=== PATIENT | female | born 2000 | race Hispanic/Latino ===

== ENCOUNTER 2022-07-27 08:43 | Outpatient (CLI) | payer BC ==
[2022-07-27 09:53] LABS: #Basophils 0.1 10x3/uL (0.0-0.2); #Eosinphils 0.1 10x3/uL (0.0-0.5); #Monocytes 0.3 10x3/uL (0.0-1.1); #Neutrophils 2.9 10x3/uL (1.5-8.4); %Basophils 1.5 % (0.0-2.0); %Eosinophils 1.3 % (0.0-6.0); %Lymphocytes 27.4 % (18.0-47.0); %Monocytes 6.9 % (0.0-10.0); %Neutrophils 62.7 % (40.0-75.0); Hemoglobin 12.6 g/dL (12.0-15.5); Mean Corpuscular HGB CONC 34.2 g/dL (32.0-36.0); Mean Corpuscular Hemoglobin 29.9 pg (27.0-33.0); Mean Corpuscular Volume 87.4 fl (81.6-98.3); Mean Platelet Volume 9.8 fl (7.4-10.4); Platelet Count 209 10x3/uL (150-450); RBC Distribution Width 11.9 % (11.5-14.5); Red Blood Cell (RBC) Count 4.21 10x6/uL (3.90-5.03); White Blood Cell (WBC) Count 4.7 10x3/uL (3.5-10.5)
[2022-07-27 10:10] LABS: ALT (SGPT) 27 U/L (8-55); AST (SGOT) 24 U/L (5-34); Albumin 4.5 g/dL (3.5-5.0); Alkaline Phosphatase 50 U/L (40-110); Anion Gap 16 mmol/L (10-20); BUN (Urea Nitrogen) 6 mg/dL (7.0-18.7); Bilirubin, Direct 0.3 mg/dL (0.1-0.3); Bilirubin, Total 0.9 mg/dL (0.2-1.2); Calc. Creatinine Clearance 0 mL/min (70-130); Calcium 9.3 mg/dL (7.8-10.44); Carbon Dioxide 21 mmol/L (22-29); Chloride 106 mmol/L (98-107); Estimated GFR 125; Glucose 89 mg/dL (70-105); Potassium 3.8 mmol/L (3.5-5.1); Protein, Total 7.4 g/dL (6.0-8.3); Sodium 139 mmol/L (136-145)
== END 2022-07-27 08:44 | disposition home or self-care (01) ==
LOC: LABBT 08:43
PROVIDERS: ATTEND Surgery
DX: Z01.812 Encounter for preprocedural laboratory examination (principal); K80.20 Calculus of gallbladder without cholecystitis without obstruction
CPT/HCPCS: 80048; 80076; 85025

== ENCOUNTER 2022-07-29 11:37 | Day surgery (SDC) | payer BC ==
[2022-07-28 10:07] VITALS: BMI 26.6
[2022-07-29] MEDS ORDERED: Bupivacaine/Epinephrine 0.25% 30 ML VIAL ONE (12:10)
[2022-07-29] MEDS ORDERED: Midazolam HCl 2 mg/2 ml Vial ONE (13:30)
[2022-07-29] MEDS ORDERED: Famotidine/PF 20 mg/2ml Vial ONE (13:52)
[2022-07-29] MEDS ORDERED: fentaNYL PF 100 MCG/2 ML SYRINGE ONE (13:52)
[2022-07-29] MEDS ORDERED: Sodium Chloride 0.9% 100 ML ONE (13:57)
[2022-07-29] MEDS ORDERED: CEFAZOLIN 2 GM VIAL ONE (13:57)
[2022-07-29] MEDS ORDERED: PROPOFOL 200 MG/20 ML VIAL ONE (14:11)
[2022-07-29] MEDS ORDERED: NEOSTIGMINE 3 MG/3 ML SYR 3 MG/3 ML SYRINGE ONE (14:11)
[2022-07-29] MEDS ORDERED: Glycopyrrolate 0.2 MG/ML 5 ML SYRINGE ONE (14:11)
[2022-07-29] MEDS ORDERED: Rocuronium Bromide 10 MG/ML (10ML VIAL) ONE (14:11)
[2022-07-29] MEDS ORDERED: SUGAMMADEX SODIUM 200 MG/2 ML VIAL ONE (14:57)
[2022-07-29] MEDS ORDERED: FENTANYL 50 MCG/ML 1 ML VIAL ONE ×2 (15:26→15:49)
[2022-07-29] MEDS ORDERED: HYDROcodone/Acetaminophen 5/325 mg Tablet ONE (16:38)
== END 2022-07-29 17:09 | disposition home or self-care (01) ==
LOC: SDC 11:37
PROVIDERS: ATTEND Surgery
PROC: 0FT44ZZ Resection of Gallbladder, Percutaneous Endoscopic Approach (ICD-10-PCS; principal; 2022-07-29)
DX: K80.10 Calculus of gallbladder with chronic cholecystitis without obstruction (principal)
CPT/HCPCS: 88304; C1889; J2250; J2704; J3010; J3490; S0028